=== PATIENT | male | born 1990 | race Asian ===

== ENCOUNTER 2024-09-18 14:31 | Inpatient (IN) | payer OTHER ==
[2024-09-18] MEDS ORDERED: hydrOXYzine PAMOATE 25 MG CAPSULE (FP) PO PRN (16:30)
[2024-09-18] MEDS ORDERED: POLYETHYLENE GLYCOL (HEALTHYLAX) 3350 17 GM PACKET PO PRN (16:30)
[2024-09-18] MEDS ORDERED: IBUPROFEN 400 MG TABLET (FP) PO PRN (16:30)
[2024-09-18] MEDS ORDERED: LOPERAMIDE HCL 2 MG CAPSULE PO PRN (16:30)
[2024-09-18] MEDS ORDERED: BENZONATATE 200 MG CAPSULE PO PRN (16:30)
[2024-09-18] MEDS ORDERED: MAG HYDROX/AL HYDROX/SIMETH 30 ML UNIT-DOSE CUP PO PRN (16:30)
[2024-09-18] MEDS ORDERED: MAGNESIUM HYDROX 2400MG/30ML ORAL SUSPENSION 30 ML CUP PO PRN (16:30)
[2024-09-18] MEDS: MELATONIN 5 MG TABLETS PO SCH (21:34)
[2024-09-18] MEDS: THIAMINE 100 MG TABLET PO SCH (21:34)
[2024-09-19] MEDS: PRENATAL VITAMINS W/ FOLIC ACID TABLET (FP) PO SCH (06:00)
[2024-09-19] MEDS: ACETAMINOPHEN 325 MG TABLET (FP) PO PRN (21:27)
[2024-09-19] MEDS: METHOCARBAMOL 500 MG TABLET PO PRN (21:27)
[2024-09-20] MEDS: BENZOCAINE/MENTHOL (CHLORASEPTIC ) LOZENGE MM PRN (10:10)
[2024-09-20] MEDS: guaiFENesin 600 MG TABLET.ER (FP) PO PRN (20:18)
[2024-09-20] MEDS: IBUPROFEN 600 MG TABLET (FP) PO PRN (20:18)
[2024-09-21] MEDS: AZITHROMYCIN 250 MG TABLET PO ONE (13:58)
[2024-09-21] MEDS: LACTULOSE 20 GM/30 ML UDC (FOR ORAL USE ONLY) PO SCH (13:59)
[2024-09-22] MEDS: AZITHROMYCIN 250 MG TABLET PO SCH (10:23)
[2024-09-26] MEDS: PRENATAL VITAMINS W/ FOLIC ACID TABLET (FP) PO PRN (09:46)
[2024-10-01 07:28] VITALS: BP 103/62; PULSE 77; RESP 18; TEMP 97.1
== END 2024-10-02 09:19 | disposition home or self-care (01) | DRG 772 ==
LOC: YASAS 14:31 → Y3NR 14:36 → Y3E 09-19 10:42
PROVIDERS: ADMIT Psychiatry & Neurology Pain Medicine; ATTEND Psychiatry & Neurology Pain Medicine
PROC: HZ42ZZZ Group Counseling for Substance Abuse Treatment, Cognitive-Behavioral (ICD-10-PCS; principal; 2024-09-18)
DX: F11.20 Opioid dependence, uncomplicated (principal); F10.20 Alcohol dependence, uncomplicated; F17.210 Nicotine dependence, cigarettes, uncomplicated; F10.282 Alcohol dependence with alcohol-induced sleep disorder; E72.20 Disorder of urea cycle metabolism, unspecified; J02.9 Acute pharyngitis, unspecified
CPT/HCPCS: 36415; 82140; 86803